=== PATIENT | female | born 1980 | race Caucasian/White ===

== ENCOUNTER → 2019-07-10 11:17 | Outpatient (CLI) | payer OTHER, SELFPAY ==
--- NOTE | 2019-07-10 11:20 | DI.RAD.S_ITS ---
PROCEDURE: XR ABDOMEN MIN 2V INDICATIONS: Look for missing Mirena IUD TECHNIQUE: 2 views of the abdomen were acquired. COMPARISON: None. FINDINGS: Surgical changes and devices: IUD noted Bowel: No pneumoperitoneum. The bowel gas pattern is normal. Soft tissues: No masses; visualized solid organ contours appear normal in size. No suspicious abdominal calcifications. Bones: No suspicious bony abnormalities. IMPRESSION: IUD projects in the pelvis Dictated by: Wily Sheldon M.D. on 07/10/2019 at 15:17 Approved by: Wily Sheldon M.D. on 07/10/2019 at 15:18
[2019-07-10 13:00] LABS: Prolactin 10.1 ng/mL (3.0-18.6)
[2019-07-10 13:25] LABS: Thyroid Stimulating Hormone 2.08 uIU/mL (0.47-4.68)
[2019-07-10 15:16] LABS: Follicle Stimulating Hormone 7.92 mIU/mL; Luteinizing Hormone 2.63 mIU/mL
== END ==
LOC: RAD 11:19
PROVIDERS: PCP Hospitalist
DX: N91.2 Amenorrhea, unspecified (principal); T83.32XA Displacement of intrauterine contraceptive device, initial encounter
CPT/HCPCS: 36415; 74019; 83001; 83002; 84146; 84443

== ENCOUNTER → 2019-10-23 13:32 | Outpatient (CLI) | payer OTHER, SELFPAY ==
--- NOTE | 2019-10-23 13:34 | DI.RAD.S_ITS ---
PROCEDURE: XR CHEST 2V INDICATIONS: L L lobe wheezes, cough x 3 weeks TECHNIQUE: 2 views of the chest were acquired. COMPARISON: [facility], CR, CHEST 2VW, 03/22/2013, 17:22. [facility], CR, CHEST 2VW, 01/22/2012, 9:26. [facility], CR, CHEST 1VW (PORTABLE), 06/25/2011, 20:36. FINDINGS: Surgical changes and devices: None. Lungs and pleura: Increased attenuation within the bilateral lung bases is present. No lobar or large area of pulmonary consolidation is identified. There is no effusion or pneumothorax. Mediastinum: Mediastinal contours are normal. Heart size is normal. Bones and chest wall: No suspicious bony abnormalities. Soft tissues appear unremarkable. IMPRESSION: Possible bibasilar pneumonia versus atelectasis. Dictated by: Luc Figueroa M.D. on 10/23/2019 at 13:05 Approved by: Luc Figueroa M.D. on 10/23/2019 at 13:06
== END ==
LOC: RAD 13:34
PROVIDERS: PCP Hospitalist; Visit Provider Nurse Practitioner
DX: R05 Cough (principal); R06.2 Wheezing
CPT/HCPCS: 71046

== ENCOUNTER 2019-12-11 06:44 | Day surgery (SDC) | payer OTHER, SELFPAY ==
[2019-12-07 15:05] VITALS: BMI 43.9
[2019-12-11] VITALS (7 sets, daily range): BP systolic 112–130; BP diastolic 62–89; PULSE 75–90; RESP 9–16; TEMP 36.3–36.8; O2SAT 94–100; BMI 43.7
[2019-12-11] MEDS: LACTATED RINGERS 1,000 ML 42 ML IV (07:34)
--- NOTE | 2019-12-11 07:35 | PM.PREOP ---
Pre-operative Note Interval Note History & Physical reviewed/Exam performed by Physician: Yes Changes to H&P: No ASA Class (for procedural sedation): II
--- NOTE | 2019-12-11 08:07 | PM.GYNOP.1 ---
Operative Date/Time/Diagnoses Date of procedure: 12/11/19 Time of procedure: 08:07 Pre-op diagnosis: Retained IUD Post-op diagnosis: same Procedure & Clinicians Procedure: Procedures Operation Date: 12/11/19 07:45 Actual Procedures Side Surgeon p Intrauterine Device Removal Salomón Amezquita MD s Laparoscopy, Diagnostic, CATALYST IMPREGNATOR Salomón Amezquita MD Indications: Retained IUD Surgeon: Salomón Amezquita Anesthesia Type: General Operative Notes Findings: IUD in situ Closure Type: not applicable Specimen(s): none Estimated blood loss (mL): 0 Blood products transfused: none Procedure in detail: The patient was placed supine upon the operating table and anesthetized. She was then placed in the dorsal lithotomy position. A nonsterile attempt was made to remove the IUD by using a speculum and tenaculum. The cervix however could not be visualized which was exactly the same problem that we had in the office. The patient was then draped repaired in usual fashion. Posterior weighted retractor was set in place and the Mancera retractor placed anteriorly. At this juncture the IUD string could be seen was grasped and the IUD removed without difficulty. The Mancera retractor posterior weighted retractor were then removed Complications: none Post-operative Condition: stable Disposition: PACU Plan for aftercare: Hold
--- NOTE | 2019-12-11 08:11 | PM.DS.1 ---
History of Present Illness History of Present Illness Date Patient Seen: 12/11/19 Time Patient Seen: 08:11 Chief complaint: Retained IUD unable to remove in office Narrative: The patient is a 39 year who has a Mirena IUD. Patient presented with heavy bleeding episode is no IUD could be seen on ultrasound. X-ray however showed the IUD to be properly placed. Attempts at visualization in the office failed and the patient was brought to the operating room for IUD removal. Discharge Providers Provider Discharge Date: 12/11/19 Primary care physician: Zenaida Sandoval PA-C Discharge provider: Salomón Amezquita MD Summary Hospital Course Discharge Diagnosis: Retained IUD Hospital Course: IUD was removed without difficulty Status at Discharge Cognitive/behavioral status at discharge: oriented Functional status at discharge: independent ambulation Overall status at discharge: patient is back to baseline Time Spent with Patient Time spent: Less than 30 minutes Exam Vital Signs (past 8 hours): - 12/11/19 07:10 Temperature 97.4 F L Pulse Rate 80 Respiratory Rate 16 Blood Pressure 127/80 Pulse Oximetry 98 Oxygen Delivery Method Room Air Narrative Exam Narrative: No bleeding postoperative Discharge Plan Discharge Plan Patient Disposition: Home Discharge Med Rec/Prescriptions Prescriptions: Discontinued Mirena 1 EACH intrauterine device Qty: 0 RF: 0 Follow up/Referrals: Salomón Amezquita MD [Physician] - 12/25/19 Discharge Orders: Discharge (Now); Ordered 12/11/19 Ordered By: Salomón Amezquita Provider Discharge Instructions Diet: Diet as Tolerated Diet comment: Regular diet Activity: Up ad noy Skin/Wound/Dressing Care Report to your healthcare provider any signs of infection, such as:: chills, fever, increased pain, unusual drainage and unusual redness Dressing: None Other wound treatment: None Visit Report/Discharge Packet Instructions: DI for Intrauterine Device Removal Discharge Data Primary Care Provider: Zenaida Sandoval Attending Provider: Salomón Amezquita
--- NOTE | 2019-12-11 08:16 | SUR.OPER ---
Lithotomy on padded OR bed, head on pillow, arms secured on padded arm boards at <90 degrees abduction. Legs secured in padded yellow fins stirrups.
[2019-12-11] MEDS: BENZOCAINE/MENTHOL 1 LOZ PKT 1 EACH PO (08:18)
[2019-12-11] MEDS: IBUPROFEN 400 MG TABLET PO (08:20)
[2019-12-11] MEDS: ONDANSETRON 4 MG/2 ML INJ IV (08:31)
--- NOTE | 2019-12-11 08:33 | SUR.PHASEI ---
Patient denied vaginal pain. Cepacol given for c/o sore throat and Ibuprofen for c/o headache.
--- NOTE | 2019-12-11 08:36 | SUR.PHASEI ---
Patient reported nausea resolved. Queaze was provided in addition to medication.
== END 2019-12-11 09:00 | disposition home or self-care (01) ==
PROVIDERS: PCP Physician Assistant Medical
PROC: (CPT 58301; principal; 2019-12-11 07:45)
DX: Z30.432 Encounter for removal of intrauterine contraceptive device (principal)
CPT/HCPCS: 58301; J0330; J1100; J2405; J2704; J3010

== ENCOUNTER 2023-04-17 13:38 | Emergency (ER) | payer OTHER, SELFPAY ==
[2023-04-17 13:42] VITALS: BP 142/84; PULSE 71; RESP 16; TEMP 36.7; O2SAT 100; BMI 39.4
--- NOTE | 2023-04-17 13:49 | ED_ITS ---
HPI - General Adult General Chief complaint: Dizziness Stated complaint: sent by [facility]/dizz/headache t-1 Time Seen by Provider: 04/17/23 13:39 History of Present Illness HPI narrative: 42-year-old female nonsmoker with history of reactive airway disease and prior headaches presents with a chief complaint a severe occipital headache that came on rather suddenly last night. She denies any trauma, injury, no neck pain or fever. She states her pain is made worse by motion and position and improves with rest. She denies any blurred vision or trouble with speech. She has no extremity numbness, tingling or weakness. She states that earlier in the day she developed some dizziness that seems to be made worse when she moves and improves with rest. She states that it feels as if the room is spinning. She denies any change in medications or diet. She would taken some antihistamines hoping that it may help but has had little to no relief. She denies runny nose, nasal congestion, sore throat or cough. She has no ear pain. Related Data Previous Rx's Medication Instructions Recorded meclizine 25 mg tablet 25 mg PO BID-TID PRN dizziness #14 04/17/23 tabs ondansetron 4 mg disintegrating 4 mg PO TID-QID PRN nausea and 04/17/23 tablet vomiting #10 tabs Allergies Allergy/AdvReac Type Severity Reaction Status Date / Time Penicillins [PENICILLINS] Allergy Severe Anaphylaxis Verified 12/11/19 06:58 Review of Systems Review of Systems Narrative: GENERAL: Denies chills, fatigue, malaise, fever, sweats. HEENT: See HPI RESPIRATORY: Denies dyspnea, cough, wheezing, hemoptysis, sputum. CARDIOVASCULAR: Denies chest pain, palpitations, orthopnea, edema, GASTROINTESTINAL: Denies nausea, vomiting, abdominal pain, diarrhea, constipation, melena. : Denies dysuria, frequency, incontinence, hematuria, urinary retention. MUSCULOSKELETAL: denies weakness, joint pain, or bony pain SKIN: Denies rash, skin lesions, or other NEUROLOGIC: See HPI PSYCHIATRIC: No concerning psychosocial issues. 12 point review of systems is negative except for those stated above Patient History Surgical History Status post delivery (03/06/08) Status post delivery (04/14/13) Status post dilation and curettage Status post tonsillectomy and adenoidectomy Status post tubal ligation (04/14/13) Social History household members: spouse Smoking Status: Never smoker alcohol intake: current Smoking Status: Never smoker alcohol intake frequency: a few times a month Substance Use Type: marijuana Exam Narrative Exam Narrative: GENERAL: [42] year old patient appears stated age. Well-developed patient, in mild distress. HEAD: Atraumatic. Normocephalic. EYES: Pupils equal round and reactive. Extraocular motions intact. No scleral icterus. No injection or drainage. ENT: Nose without bleeding, purulent drainage. Throat without erythema, tonsillar hypertrophy or exudate. Airway patent. No obvious nystagmus NECK: Trachea midline. Non tender CARDIOVASCULAR: Regular rate and rhythm without murmurs, gallops, or rubs. RESPIRATORY: Clear to auscultation. Breath sounds equal bilaterally. No wheezes, rales, or rhonchi. GASTROINTESTINAL: Abdomen soft, non-tender, nondistended. EXTREMITIES: No edema or joint tenderness. BACK: Nontender without deformity or crepitance. No flank tenderness. NEURO: AOx3. SKIN: No rash or erythema of visible areas Initial Vital Signs Initial Vital Signs: Vital Signs Temperature 98.0 F 04/17/23 13:42 Pulse Rate 71 04/17/23 13:42 Respiratory Rate 16 04/17/23 13:42 Blood Pressure 142/84 H 04/17/23 13:42 Pulse Oximetry 100 04/17/23 13:42 Oxygen Delivery Method Room Air 04/17/23 13:42 Course Orders Ordered: Discontinued Medications Diphenhydramine HCl (Diphenhydramine 50 Mg/Ml Vial) 25 mg IV NOW ONE Stop: 04/17/23 14:31 Last Admin: 04/17/23 15:00 Dose: 25 mg Documented By: NR Sodium Chloride (Normal Saline 0.9%) 1,000 mls @ 1,000 mls/hr IV BOLUS ONE Stop: 04/17/23 15:28 Last Infusion: 04/17/23 16:11 Dose: 0 mls/hr Documented By: Admin: 04/17/23 15:01 Dose: 1,000 mls/hr Documented By: NR Ketorolac Tromethamine (Ketorolac 30 Mg/Ml Vial) 15 mg IV NOW ONE Stop: 04/17/23 15:10 Last Admin: 04/17/23 15:26 Dose: 15 mg Documented By: NR Metoclopramide HCl (Metoclopramide 10 Mg/2 Ml Inj) 10 mg IV NOW ONE Stop: 04/17/23 14:30 Last Admin: 04/17/23 15:01 Dose: 10 mg Documented By: NR Vital Signs Vital signs: Vital Signs - 8 hr 04/17/23 13:42 Temperature 98.0 F Pulse Rate 71 Respiratory Rate 16 Blood Pressure 142/84 H Pulse Oximetry 100 Oxygen Delivery Method Room Air Medical Decision Making Lab Data 04/17/23 15:00 04/17/23 15:00 Labs: Lab Results 04/17/23 04/17/23 Range/Units 15:00 15:00 WBC 7.0 (4.5-11.0) X10^3/uL RBC 5.24 H (4.0-5.2) X10^6/uL Hgb 15.4 (12.0-16.0) g/dL Hct 43.9 (36-46) % MCV 83.8 (80-100) fL MCH 29.4 (26-34) PG MCHC 35.1 (30-36) % RDW 12.8 (11.6-14.8) % Plt Count 246 (150-400) X10^3/uL Neut % (Auto) 61.7 (50-75) % Lymph % (Auto) 29.6 (25-40) % [place] % (Auto) 5.9 (3-14) % Eos % (Auto) 2.0 (2-4) % Baso % (Auto) 0.8 (0-2) % Neut # (Auto) 4300 (7668-0900) /uL Lymph # (Auto) 2100 (3235-7017) /uL [place] # (Auto) 400 (0-900) /uL Eos # (Auto) 100 (0-450) /uL Baso # (Auto) 100 (0-100) /uL Sodium 137 (137-145) mmol/L Potassium 4.0 (3.4-5.1) mmol/L Chloride 102 (98-107) mmol/L Carbon Dioxide 27 (22-32) mmol/L BUN 9 (7-17) mg/dL Creatinine 0.60 (0.52-1.04) mg/dL Estimated GFR > 60 (>60) mL/min BUN/Creatinine Ratio 15.0 (6-22) Glucose 87 (70-100) mg/dL Calcium 9.5 (8.4-10.2) mg/dL Total Bilirubin 1.2 (0.2-1.3) mg/dL AST 24 (14-36) IU/L ALT 27 (<35) IU/L Alkaline Phosphatase 44 (38-126) U/L Total Protein 7.9 (6.3-8.2) g/dL Albumin 4.5 (3.5-5.0) g/dL Globulin 3.4 (1.7-4.1) g/dL Albumin/Globulin Ratio 1.3 (1.0-2.8) Point of Care Testing Test Results Negative Urine Dip Bedside Urine Glucose Negative Bedside Urine Bilirubin - Negative Bedside Urine Ketone - Negative Urine Specific [place] 1.000 Bedside Urine Occult Blood - Negative Bedside Urine pH 6.5 Bedside Urine Protein - Negative Bedside Urine Urobilinogen - Negative Bedside Urine Nitrite - Negative Bedside Urine Leukocytes - Negative Esterase Point of care testing: Point of Care Testing Test Results Negative Urine Dip Bedside Urine Glucose Negative Bedside Urine Bilirubin - Negative Bedside Urine Ketone - Negative Urine Specific [place] 1.000 Bedside Urine Occult Blood - Negative Bedside Urine pH 6.5 Bedside Urine Protein - Negative Bedside Urine Urobilinogen - Negative Bedside Urine Nitrite - Negative Bedside Urine Leukocytes - Negative Esterase MDM Narrative Medical decision making narrative: Headache considerations include, but not limited to: Subarachnoid hemorrhage, but unlikely as patient denies sudden onset of pain, not worst of life, or neck pain Meningitis considered, but thought unlikely given lack of Brudzinski's, Kernig's sign, altered mental status or fever Giant cell arteritis considered, but thought unlikely given lack of unilateral findings, pain in latter-day, vision change HTN Emergency considered, but thought unlikely given normal vitals Other serious diagnoses considered unlikely given lack of red flag findings such as sudden onset, increasing frequency, immunocompromise, systemic signs (fever, chills, stiff neck, or rash), focal neurologic findings, trauma, blood thinners, etc. Discharge Plan Departure Patient Disposition: Home Clinical Impression: Headache, Dizziness Instructions: DI for Vertigo, DI for Headache Activity Restrictions/Additional Instructions: *You have been diagnosed with [ Headache ] *What to do: *Take medications as directed *Follow up with your primary care provider in 2-3 days, call for an appointment. Let them know you were seen in the Emergency Department and that we ask that you be seen in follow up *Return to ER if you should have any new, worsening or concerning symptoms, such as [ fever > 101F, neck pain or stiffness, vomiting, confusion, seizure, focal weakness, vision change, speech deficit or other concerning symptoms ] Prescriptions: New meclizine 25 mg tablet 25 mg PO BID-TID PRN (Reason: dizziness) Qty: 14 0RF ondansetron 4 mg tablet,disintegrating 4 mg PO TID-QID PRN (Reason: nausea and vomiting) Qty: 10 0RF Referrals: Zenaida Sandoval PA-C [Primary Care Provider] - Stand Alone Forms: Patient Portal/API
--- NOTE | 2023-04-17 14:30 | DI.CT.S_ITS ---
PROCEDURE: CT HEAD/BRAIN WO CON INDICATIONS: severe headache TECHNIQUE: Noncontrast 4.5 mm thick angled axial sections acquired from the foramen magnum to the vertex, with coronal and sagittal reformats. For radiation dose reduction, the following was used: automated exposure control, adjustment of mA and/or kV according to patient size. COMPARISON: None. FINDINGS: Image quality: Mild streak artifact can be seen through the skull base. CSF spaces: Basal cisterns are patent. No extra-axial fluid collections. Ventricles are normal in size and shape. Brain: No midline shift. No intracranial masses or hemorrhage. Lewis-white matter interface is normal. Skull and face: Calvarium and visualized facial bones are intact, without suspicious lesions. Sinuses: Visualized sinuses and mastoids are clear. IMPRESSION: No acute intracranial hemorrhage is seen. No acute intracranial process is seen. To the limits of noncontrast head CT, no findings of masses or mass effect can be seen. No hydrocephalus or brain edema. Dictated by: Fransico Ferreira M.D. on 04/17/2023 at 13:52 Approved by: Fransico Ferreira M.D. on 04/17/2023 at 13:52
[2023-04-17] MEDS: diphenhydrAMINE 50 MG/ML VIAL 25 MG IV (15:00)
[2023-04-17] MEDS: METOCLOPRAMIDE 10 MG/2 ML INJ IV (15:01)
[2023-04-17] MEDS: SODIUM CHLORIDE 0.9% 1,000 ML 1000 ML IV (15:01)
--- NOTE | 2023-04-17 15:03 | PC.NURSE ---
med administration slightly delayed due to patient being taken to DI. then IV was only obtained through US.
[2023-04-17 15:18] LABS: Add Manual Diff / Slide Review NO; Basophils Absolute Auto 100 /uL (0-100); Basophils Percent Auto 0.8 % (0-2); Eosinophils Absolute Auto 100 /uL (0-450); Hematocrit 43.9 % (36-46); Hemoglobin 15.4 g/dL (12.0-16.0); Lymphocytes Absolute Auto 2100 /uL (1100-4500); Lymphocytes Percent Auto 29.6 % (25-40); Mean Corpuscular HGB Conc 35.1 % (30-36); Mean Corpuscular Hemoglobin 29.4 PG (26-34); Mean Corpuscular Volume 83.8 fL (80-100); Monocytes Absolute Auto 400 /uL (0-900); Monocytes Percent Auto 5.9 % (3-14); Neutrophils Absolute Auto 4300 /uL (1500-7000); Neutrophils Percent Auto 61.7 % (50-75); Platelet Count 246 X10^3/uL (150-400); Red Blood Cell Count 5.24 X10^6/uL (4.0-5.2); Red Cell Distribution Width 12.8 % (11.6-14.8)
[2023-04-17 15:23] LABS: Alanine Aminotransferase 27 IU/L (<35); Albumin 4.5 g/dL (3.5-5.0); Albumin Globulin Ratio 1.3 (1.0-2.8); Alkaline Phosphatase 44 U/L (38-126); Aspartate Aminotransferase 24 IU/L (14-36); Bilirubin Total 1.2 mg/dL (0.2-1.3); Blood Urea Nitrogen 9 mg/dL (7-17); Calcium 9.5 mg/dL (8.4-10.2); Carbon Dioxide 27 mmol/L (22-32); Chloride 102 mmol/L (98-107); Estimated Glomerular Filt Rate > 60 mL/min (>60); Globulin 3.4 g/dL (1.7-4.1); Glucose 87 mg/dL (70-100); HEMOLYSIS < 15 (0-50); Sodium 137 mmol/L (137-145); Total Protein 7.9 g/dL (6.3-8.2)
[2023-04-17] MEDS: KETOROLAC 30 MG/ML VIAL 15 MG IV (15:26)
== END 2023-04-17 16:10 | disposition home or self-care (01) ==
PROVIDERS: Emergency Provider Emergency Medicine; PCP Physician Assistant Medical
DX: R51.9 Headache, unspecified (principal); R42 Dizziness and giddiness
CPT/HCPCS: 36415; 70450; 80053; 81003; 81025; 85025; 96361; 96374; 96375; 99284; J1200; J1885; J2765